=== PATIENT | female | born 2000 | race Caucasian/White ===

== ENCOUNTER → 2021-07-11 11:41 | Outpatient (CLI) | payer BC, SELFPAY ==
[2021-07-13 15:57] LABS: HPV Reflexed? NOT INDICATED
== END ==
PROVIDERS: PCP Pediatrics; Visit Provider Obstetrics & Gynecology
DX: Z12.4 Encounter for screening for malignant neoplasm of cervix (principal); Z11.3 Encounter for screening for infections with a predominantly sexual mode of transmission; N77.1 Vaginitis, vulvitis and vulvovaginitis in diseases classified elsewhere
CPT/HCPCS: 88175; G0145